=== PATIENT | male | born 1960 | race Caucasian/White ===

== ENCOUNTER → 2023-11-18 17:27 | Outpatient (BNVA) | payer MEDICARE, MEDICAID, SELFPAY | PROVIDERS: PCP Family Medicine; Visit Provider Family Medicine | DX: R73.9 Hyperglycemia, unspecified (principal) | CPT/HCPCS: 80053; 83036; 85025 ==

== ENCOUNTER → 2025-06-08 11:49 | Outpatient (BNVA) | payer MEDICARE, MEDICAID, SELFPAY | PROVIDERS: PCP Family Medicine; Visit Provider Family Medicine | DX: I10 Essential (primary) hypertension (principal); E11.9 Type 2 diabetes mellitus without complications; K70.30 Alcoholic cirrhosis of liver without ascites | CPT/HCPCS: 80053; 80061; 83036; 85025 ==